=== PATIENT | female | born 1985 | race Two or more races ===

== ENCOUNTER 2019-12-18 17:51 | Emergency (ER) | payer OTHER ==
[~2019-12-18] VITALS: Ht 160 cm; Wt 57.6 kg
[2019-12-18 18:16] VITALS: BP 111/86
== END 2019-12-19 00:44 | disposition left against medical advice (07) ==
LOC: ER 17:51
DX: R10.9 Unspecified abdominal pain (principal); Z53.21 Procedure and treatment not carried out due to patient leaving prior to being seen by health care provider